=== PATIENT | male | born 1970 | race Caucasian/White ===

== ENCOUNTER 2021-03-13 10:47 | Emergency (ER) | payer OTHER ==
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
--- NOTE | 2021-03-13 12:06 | CR ---
DATE OF SERVICE: 03/13/2021 CLINICAL DATA: TRAUMA Left foot: No acute fracture or dislocation. No lytic or blastic bone lesions. Minimal osteoarthritic changes. There is a small posterior calcaneal spur. MTDD
== END 2021-03-13 11:45 | disposition home or self-care (01) ==
LOC: LB.ED 10:47
DX: S90.32XA Contusion of left foot, initial encounter (principal); Z72.0 Tobacco use; V86.59XA Driver of other special all-terrain or other off-road motor vehicle injured in nontraffic accident, initial encounter; Y92.410 Unspecified street and highway as the place of occurrence of the external cause
CPT/HCPCS: 73630-LT; 99283-25